=== PATIENT | female | born 1960 | race Caucasian/White ===

== ENCOUNTER → 2023-02-06 10:18 | Outpatient (REF) | payer BC, SELFPAY ==
[2023-02-06 12:39] LABS: ALT (SGPT) 137 U/L (0-35); AST (SGOT) 43 U/L (14-36); Albumin 3.3 g/dl (3.5-5.0); Alkaline Phosphatase 102 U/L (38-126); Direct Bilirubin 0.4 mg/dl (0.0-0.4); Total Bilirubin 0.6 mg/dl (0.2-1.3)
== END ==
LOC: REG 10:18
PROVIDERS: ATTENDING PHYSICIAN Hospitalist; FAMILY PHYSICIAN Family Medicine; REFERRING PHYSICIAN Internal Medicine Rheumatology
DX: R74.01 Elevation of levels of liver transaminase levels (principal)
CPT/HCPCS: 36415; 80076

== ENCOUNTER 2023-07-16 07:46 | Outpatient (RCR) | payer BC, SELFPAY ==
[2023-07-16 08:02] VITALS: BP 93/67
[2023-07-16] MEDS: SAPHNELO 100 MG IV (08:13)
== END 2023-07-30 23:59 | disposition home or self-care (01) ==
LOC: OID 07:46
PROVIDERS: ATTENDING PHYSICIAN Internal Medicine Rheumatology; FAMILY PHYSICIAN Family Medicine
DX: M32.9 Systemic lupus erythematosus, unspecified (principal)
CPT/HCPCS: 96365; J0491

== ENCOUNTER 2023-08-13 07:41 | Outpatient (RCR) | payer BC, SELFPAY ==
[2023-08-13 07:50] VITALS: BP 126/75
[2023-08-13] MEDS: SAPHNELO 100 MG IV (08:02)
== END 2023-08-13 15:46 | disposition home or self-care (01) ==
LOC: OID 07:41
PROVIDERS: ATTENDING PHYSICIAN Internal Medicine Rheumatology; FAMILY PHYSICIAN Family Medicine
DX: M32.9 Systemic lupus erythematosus, unspecified (principal)
CPT/HCPCS: 96365; J0491

== ENCOUNTER → 2023-08-26 09:01 | Outpatient (REF) | payer BC, SELFPAY ==
[2023-08-26 09:54] LABS: % Basophils 1.7 % (0-2); % Eosinophils 5.8 % (0-6); % Immature Granulocytes 0.2 % (0-0.5); % Lymphocytes 23.4 % (20.5-51.1); % Monocytes 12.4 % (1.7-9.3); % Neutrophils 56.5 % (42.2-75.2); Absolute Basophils 0.1 10^3/uL (0-0.2); Absolute Eosinophils 0.2 10^3/uL (0-0.7); Absolute Monocytes 0.5 10^3/uL (0.1-0.6); Absolute Neutrophils 2.3 10^3/uL (1.4-6.5); Hematocrit 44.9 % (37.0-47.0); Mean Corp Hgb Conc. 33.4 g/dL (33.0-37.0); Mean Corpuscular Volume 95.7 fL (81.0-99.0); Mean Platelet Volume 11.1 fL (7.4-10.4); Nucleated Red Blood Cells % 0 %; Platelet Count 218 10^3/uL (130-400); Red Blood Cell Count 4.69 10^6/uL (4.20-5.40); Red Cell Dist. Width 12.8 % (11.5-14.5); White Blood Cell Count 4.1 10^3/uL (4.8-10.8)
[2023-08-26 10:22] LABS: Urine Albumin Trace (Neg - Trace); Urine Bilirubin 1+ (Negative); Urine Character Clear (Clear); Urine Color Yellow; Urine Glucose Negative (Negative); Urine Ketone Trace (Negative); Urine Leukocyte Trace (Negative); Urine Nitrite Negative (Negative); Urine Occult Blood Negative (Negative); Urine Urobilinogen 1+ (Neg - 1+)
[2023-08-26 10:26] LABS: ALT (SGPT) 15 U/L (0-35); AST (SGOT) 26 U/L (14-36); Albumin 3.9 g/dl (3.5-5.0); Alkaline Phosphatase 83 U/L (38-126); Blood Urea Nitrogen 10 mg/dl (7-17); Calcium 9.3 mg/dl (8.4-10.2); Carbon Dioxide 31 mmol/L (22-30); Chloride 104 mmol/L (98-107); Glucose 89 mg/dl (70-99); HDL Cholesterol 55 mg/dl; LDL Cholesterol, Calculated 160 mg/dl; Potassium 4.2 mmol/L (3.5-5.1); Sodium 138 mmol/L (135-145); Total Bilirubin 0.6 mg/dl (0.2-1.3); Total Cholesterol 234 mg/dl (50-199); Triglyceride 97 mg/dl (10-149); Very Low Density Lipoprotein 19 mg/dl (0-30); eGFR > 60.00
[2023-08-26 10:34] LABS: Vitamin D, 25-OH*** 31.2 ng/mL (30-80)
[2023-08-26 10:48] LABS: TSH 1.06 uIU/ml (0.47-4.68)
[2023-08-26 10:55] LABS: Urine Mucus Moderate
[2023-08-26 10:56] LABS: Urine Red Blood Cell 0-2 /HPF (0-2)
[2023-08-26 12:13] LABS: Glycohemoglobin (HgbA1c) 5.7 % (4.0-5.6)
== END ==
LOC: REG 09:01
PROVIDERS: ATTENDING PHYSICIAN Family Medicine
DX: Z00.00 Encounter for general adult medical examination without abnormal findings (principal); R25.2 Cramp and spasm; J32.9 Chronic sinusitis, unspecified; R74.01 Elevation of levels of liver transaminase levels; M32.9 Systemic lupus erythematosus, unspecified; Z87.891 Personal history of nicotine dependence; R73.01 Impaired fasting glucose; E55.9 Vitamin D deficiency, unspecified; E78.5 Hyperlipidemia, unspecified; Z13.820 Encounter for screening for osteoporosis
CPT/HCPCS: 36415; 80053; 80061; 81003; 81015; 82306; 83036; 84443; 85025

== ENCOUNTER → 2023-08-27 14:20 | Outpatient (REF) | payer BC, SELFPAY | LOC: RAD 14:20 | PROVIDERS: ATTENDING PHYSICIAN Family Medicine | DX: J32.9 Chronic sinusitis, unspecified (principal) | CPT/HCPCS: 70486 ==

== ENCOUNTER 2023-09-10 07:39 | Outpatient (RCR) | payer BC, SELFPAY ==
[2023-09-10 07:55] VITALS: BP 110/61
[2023-09-10] MEDS: SAPHNELO 100 MG IV (08:01)
== END 2023-09-10 15:34 | disposition home or self-care (01) ==
LOC: OID 07:39
PROVIDERS: ATTENDING PHYSICIAN Internal Medicine Rheumatology; FAMILY PHYSICIAN Family Medicine
DX: M32.9 Systemic lupus erythematosus, unspecified (principal)
CPT/HCPCS: 96365; J0491

== ENCOUNTER → 2023-09-17 16:57 | Outpatient (REF) | payer BC, SELFPAY ==
[2023-09-17 18:04] LABS: % Eosinophils 1.2 % (0-6); % Immature Granulocytes 0.6 % (0-0.5); % Lymphocytes 21.5 % (20.5-51.1); % Monocytes 4.3 % (1.7-9.3); % Neutrophils 71.4 % (42.2-75.2); Absolute Basophils 0.1 10^3/uL (0-0.2); Absolute Eosinophils 0.1 10^3/uL (0-0.7); Absolute Immature Granulocytes 0.1 10^3/uL (0-0.05); Absolute Monocytes 0.4 10^3/uL (0.1-0.6); Absolute Neutrophils 6.7 10^3/uL (1.4-6.5); Hematocrit 46.4 % (37.0-47.0); Hemoglobin 15.4 g/dL (12.0-16.0); Mean Corp Hgb Conc. 33.2 g/dL (33.0-37.0); Mean Corpuscular Hgb 32.4 pg (27.0-31.0); Mean Corpuscular Volume 97.5 fL (81.0-99.0); Nucleated Red Blood Cells % 0 %; Platelet Count 224 10^3/uL (130-400); Red Blood Cell Count 4.76 10^6/uL (4.20-5.40); Red Cell Dist. Width 13.1 % (11.5-14.5); White Blood Cell Count 9.3 10^3/uL (4.8-10.8)
[2023-09-17 18:05] LABS: Urine Albumin Negative (Neg - Trace); Urine Bilirubin Negative (Negative); Urine Character Clear (Clear); Urine Color Yellow; Urine Glucose Negative (Negative); Urine Ketone Negative (Negative); Urine Leukocyte Negative (Negative); Urine Nitrite Negative (Negative); Urine Occult Blood Negative (Negative); Urine Specific Gravity 1.005 (<1.030); Urine Urobilinogen Negative (Neg - 1+)
[2023-09-17 18:09] LABS: Erythrocyte Sed Rate 17 mm/hour (0-20)
[2023-09-17 18:40] LABS: ALT (SGPT) 17 U/L (0-35); AST (SGOT) 21 U/L (14-36); Albumin 4.2 g/dl (3.5-5.0); Alkaline Phosphatase 71 U/L (38-126); Blood Urea Nitrogen 13 mg/dl (7-17); Calcium 9.6 mg/dl (8.4-10.2); Carbon Dioxide 31 mmol/L (22-30); Chloride 96 mmol/L (98-107); Glucose 115 mg/dl (70-99); Potassium 4.3 mmol/L (3.5-5.1); Sodium 137 mmol/L (135-145); Total Bilirubin 0.4 mg/dl (0.2-1.3); Total Protein 7.3 g/dl (6.3-8.2); eGFR > 60.00
[2023-09-17 18:42] LABS: C-Reactive Protein < 5.00 mg/L (0.0-10.00)
[2023-09-17 18:58] LABS: Vitamin D, 25-OH*** 24.9 ng/mL (30-80)
[2023-09-19 20:15] LABS: ANA, IgG Reflex to HEp-2 Detected (None Detected)
[2023-09-22 07:22] LABS: ANA, HEp-2, IgG Detected (<1:80)
[2023-09-22 07:37] LABS: ANA Pattern Homogeneous; Cytoplasmic Pattern Speckled
== END ==
LOC: REG 16:57
PROVIDERS: ATTENDING PHYSICIAN Internal Medicine Rheumatology; FAMILY PHYSICIAN Family Medicine
DX: G43.109 Migraine with aura, not intractable, without status migrainosus (principal); I73.00 Raynaud's syndrome without gangrene; M32.9 Systemic lupus erythematosus, unspecified; N39.0 Urinary tract infection, site not specified; Z68.26 Body mass index [BMI] 26.0-26.9, adult
CPT/HCPCS: 36415; 80053; 81003; 82306; 85025; 85652; 86038; 86039; 86140; 87086

== ENCOUNTER 2023-10-08 07:42 | Outpatient (RCR) | payer BC, SELFPAY ==
[2023-10-08 07:50] VITALS: BP 99/64
[2023-10-08] MEDS: SAPHNELO 100 MG IV (08:02)
== END 2023-10-08 10:29 | disposition home or self-care (01) ==
LOC: OID 07:42
PROVIDERS: ATTENDING PHYSICIAN Internal Medicine Rheumatology; FAMILY PHYSICIAN Family Medicine
DX: M32.9 Systemic lupus erythematosus, unspecified (principal)
CPT/HCPCS: 96365; J0491

== ENCOUNTER 2023-11-05 07:42 | Outpatient (RCR) | payer BC, SELFPAY ==
[2023-11-05] MEDS: SAPHNELO 100 MG IV (08:13)
[2023-11-05 08:18] VITALS: BP 110/61
== END 2023-11-05 13:13 | disposition home or self-care (01) ==
LOC: OID 07:42
PROVIDERS: ATTENDING PHYSICIAN Internal Medicine Rheumatology; FAMILY PHYSICIAN Family Medicine
DX: M32.9 Systemic lupus erythematosus, unspecified (principal)
CPT/HCPCS: 96365; J0491

== ENCOUNTER 2023-12-03 07:45 | Outpatient (RCR) | payer BC, SELFPAY ==
[2023-12-03 08:00] VITALS: BP 101/59
[2023-12-03] MEDS: SAPHNELO 100 MG IV (08:06)
[2023-12-03 08:34] LABS: ALT (SGPT) 12 U/L (0-35); AST (SGOT) 23 U/L (14-36); Albumin 3.6 g/dl (3.5-5.0); Alkaline Phosphatase 62 U/L (38-126); Blood Urea Nitrogen 11 mg/dl (7-17); Calcium 9.6 mg/dl (8.4-10.2); Carbon Dioxide 28 mmol/L (22-30); Chloride 106 mmol/L (98-107); Glucose 89 mg/dl (70-99); HDL Cholesterol 58 mg/dl; LDL Cholesterol, Calculated 91 mg/dl; Potassium 4.2 mmol/L (3.5-5.1); Sodium 140 mmol/L (135-145); Total Bilirubin 0.5 mg/dl (0.2-1.3); Total Cholesterol 175 mg/dl (50-199); Total Protein 6.6 g/dl (6.3-8.2); Triglyceride 134 mg/dl (10-149); Very Low Density Lipoprotein 26 mg/dl (0-30); eGFR > 60.00
== END 2023-12-03 11:26 | disposition home or self-care (01) ==
LOC: OID 07:45
PROVIDERS: ATTENDING PHYSICIAN Internal Medicine Rheumatology; FAMILY PHYSICIAN Family Medicine
DX: M32.9 Systemic lupus erythematosus, unspecified (principal)
CPT/HCPCS: 36415; 80053; 80061; 96365; J0491

== ENCOUNTER 2024-01-28 07:46 | Outpatient (RCR) | payer BC, SELFPAY ==
[2023-12-31] MEDS: SAPHNELO 100 MG IV (08:11)
[2023-12-31 08:23] VITALS: BP 102/63
[2024-01-28] MEDS: SAPHNELO 100 MG IV (08:10)
[2024-01-28 08:15] VITALS: BP 96/60
== END 2024-01-28 14:43 | disposition home or self-care (01) ==
LOC: OID 07:46
PROVIDERS: ATTENDING PHYSICIAN Internal Medicine Rheumatology; FAMILY PHYSICIAN Family Medicine
DX: M32.9 Systemic lupus erythematosus, unspecified (principal)
CPT/HCPCS: 96365; J0491

== ENCOUNTER 2024-02-25 07:37 | Outpatient (RCR) | payer BC, SELFPAY ==
[2024-02-25 07:50] VITALS: BP 111/67
[2024-02-25] MEDS: SAPHNELO 100 MG IV (07:57)
== END 2024-02-25 15:27 | disposition home or self-care (01) ==
LOC: OID 07:37
PROVIDERS: ATTENDING PHYSICIAN Internal Medicine Rheumatology; FAMILY PHYSICIAN Family Medicine
DX: M32.9 Systemic lupus erythematosus, unspecified (principal)
CPT/HCPCS: 96365; J0491

== ENCOUNTER → 2024-03-03 17:09 | Outpatient (REF) | payer BC, SELFPAY | LOC: WDC 17:09 | PROVIDERS: ATTENDING PHYSICIAN Obstetrics & Gynecology; FAMILY PHYSICIAN Family Medicine | DX: Z12.31 Encounter for screening mammogram for malignant neoplasm of breast (principal) | CPT/HCPCS: 77063; 77067 ==

== ENCOUNTER → 2024-03-18 07:42 | Outpatient (REF) | payer BC, SELFPAY ==
[2024-03-18 10:18] LABS: % Basophils 1.4 % (0-2); % Eosinophils 3.7 % (0-6); % Immature Granulocytes 0.2 % (0-0.5); % Lymphocytes 24.7 % (20.5-51.1); % Monocytes 9.2 % (1.7-9.3); % Neutrophils 60.8 % (42.2-75.2); Absolute Basophils 0.1 10^3/uL (0-0.2); Absolute Eosinophils 0.2 10^3/uL (0-0.7); Absolute Lymphocytes 1.1 10^3/uL (1.2-3.4); Absolute Monocytes 0.4 10^3/uL (0.1-0.6); Absolute Neutrophils 2.6 10^3/uL (1.4-6.5); Hematocrit 43.4 % (37.0-47.0); Hemoglobin 14.8 g/dL (12.0-16.0); Mean Corp Hgb Conc. 34.1 g/dL (33.0-37.0); Mean Corpuscular Hgb 32.1 pg (27.0-31.0); Mean Corpuscular Volume 94.1 fL (81.0-99.0); Mean Platelet Volume 11.9 fL (7.4-10.4); Nucleated Red Blood Cells % 0 %; Platelet Count 173 10^3/uL (130-400); Red Blood Cell Count 4.61 10^6/uL (4.20-5.40); Red Cell Dist. Width 13.2 % (11.5-14.5); White Blood Cell Count 4.3 10^3/uL (4.8-10.8)
[2024-03-18 10:58] LABS: ALT (SGPT) 15 U/L (0-35); AST (SGOT) 26 U/L (14-36); Albumin 3.8 g/dl (3.5-5.0); Alkaline Phosphatase 69 U/L (38-126); Blood Urea Nitrogen 11 mg/dl (7-17); Calcium 9.2 mg/dl (8.4-10.2); Carbon Dioxide 27 mmol/L (22-30); Chloride 104 mmol/L (98-107); Glucose 90 mg/dl (70-99); Potassium 4.3 mmol/L (3.5-5.1); Sodium 143 mmol/L (135-145); Total Bilirubin 0.6 mg/dl (0.2-1.3); Total Protein 6.6 g/dl (6.3-8.2); eGFR > 60.00
[2024-03-18 11:04] LABS: C-Reactive Protein < 5.00 mg/L (0.0-10.00)
[2024-03-18 11:20] LABS: Vitamin D, 25-OH*** 59.4 ng/mL (30-80)
[2024-03-18 11:46] LABS: Erythrocyte Sed Rate 28 mm/hour (0-20)
[2024-03-20 02:51] LABS: ANA, IgG Reflex to HEp-2 Detected (None Detected)
== END ==
LOC: REG 07:42
PROVIDERS: ATTENDING PHYSICIAN Internal Medicine Rheumatology; FAMILY PHYSICIAN Family Medicine
DX: E55.9 Vitamin D deficiency, unspecified (principal); G43.109 Migraine with aura, not intractable, without status migrainosus; I73.00 Raynaud's syndrome without gangrene; M32.9 Systemic lupus erythematosus, unspecified; N39.0 Urinary tract infection, site not specified; Z68.26 Body mass index [BMI] 26.0-26.9, adult
CPT/HCPCS: 36415; 80053; 82306; 85025; 85652; 86038; 86140; 87086

== ENCOUNTER → 2024-03-19 14:18 | Outpatient (REF) | payer BC, SELFPAY | LOC: HWRAD 14:18 | PROVIDERS: ATTENDING PHYSICIAN Family Medicine | DX: Z87.891 Personal history of nicotine dependence (principal) | CPT/HCPCS: 71271 ==

== ENCOUNTER 2024-03-24 07:43 | Outpatient (RCR) | payer BC, SELFPAY ==
[2024-03-24] MEDS: SAPHNELO 100 MG IV (08:11)
[2024-03-24 08:15] VITALS: BP 115/66
== END 2024-03-24 13:48 | disposition home or self-care (01) ==
LOC: OID 07:43
PROVIDERS: ATTENDING PHYSICIAN Internal Medicine Rheumatology; FAMILY PHYSICIAN Family Medicine
DX: M32.9 Systemic lupus erythematosus, unspecified (principal)
CPT/HCPCS: 96365; J0491

== ENCOUNTER → 2024-03-31 11:00 | Outpatient (REF) | payer BC, SELFPAY | LOC: CLAB 11:00 | PROVIDERS: ATTENDING PHYSICIAN Otolaryngology | DX: J32.4 Chronic pansinusitis (principal) | CPT/HCPCS: 88304; 88311; 87070; 87077; 87205 ==

== ENCOUNTER 2024-04-06 11:08 | Emergency (ER) | payer BC, SELFPAY ==
[2024-04-06 11:13] VITALS: BP 97/59
--- NOTE | 2024-04-06 11:21 | ED.GENMED ---
ED Provider Triage
-
Patient seen by provider in Triage?: Seen in Triage
Attestation: A medical screening examination has been initiated by a qualified medical provider. Based on the assessment performed at this time, it has been determined that an emergent medical condition may exist and the patient has been informed
that further medical evaluation and possible additional diagnostic testing may be needed.
HPI: 63-year-old female presents to the emergency department for evaluation of intractable nausea vomiting and diarrhea beginning last night. Began about 30 minutes after taking a dose of Bactrim, had a recent rhinoplasty with operative washout,
operative cultures growing Serratia marcescens susceptible to Bactrim, first dose began last night, ENT is Dr. Cornell
GENERAL: Alert , in no apparent distress
EYE: No visual abnormalities.
NECK: Trachea midline
ENT: No visible abnormalities.
LUNGS: No acute respiratory distress
NEUROLOGICAL: Alert and oriented
SKIN: Skin intact. No visible changes.
MUSCULOSKELETAL: Moving extremities normally
PSYCH: Normal and appropriate interaction.
A/P: N/V/D, check labs and give IV antiemetics/fluids, no strong indication for CT at this time
This is a medical evaluation conducted in person to initiate diagnostic evaluation and provide initial therapeutics. Please see further documentation by the treating clinician.
History of Present Illness
General
Chief Complaint: Abdominal Symptoms
Past History
Past History
ED Past Medical History: Other (diverticulitis and SLE)
ED Past Surgical History: and Other
Social History
Tobacco: Smoker
Alcohol: None
Drug: None
Personal:
Living: with family
Employment: Employed
Family History
Family History: Hypertension
Course
Orders/Labs/Results
Orders:
Orders
04/06/24 11:19
Complete Blood Count/With Diff Urgent
Comprehensive Metabolic Panel Urgent
Lipase Urgent
0.9% Sodium Chloride 1000 ml [Nss] 1,000 ml IV BOLUS
Ondansetron Injectable [Zofran] 4 mg IV NOW STA
Vital Signs
Initial and Last Documented VS:
Initial Vital Signs
Temp Pulse Resp BP Pulse Ox
97.7 F 75 20 97/59 97
04/06/24 11:13 04/06/24 11:13 04/06/24 11:13 04/06/24 11:13 04/06/24 11:13
Last Documented Vital Signs
Temp Pulse Resp BP Pulse Ox
97.7 F 75 20 97/59 97
04/06/24 11:13 04/06/24 11:13 04/06/24 11:13 04/06/24 11:13 04/06/24 11:13
ED Attending Note
-
Portions of this chart may have been created with voice recognition software.� Occasional wrong word or��sound alike� substitutions may have occurred due to the inherent limitations of voice recognition software.
Discharge Plan
Departure
Prescriptions:
No Action
sumatriptan succinate [Imitrex] 50 mg Tablet
100 mg PO DAILYPRN PRN (Reason: migraine)
Rx Instructions:
2 tabs on onset of migraine, may repeat in 2hrs if needed
gabapentin 300 mg Capsule
600 mg PO HS PRN (Reason: Neurological Condition)
varenicline 1 mg Tablet
1 mg PO HS
Saphnelo 300 mg/2 mL (150 mg/mL) Solution
300 mg IV Q4W
Rx Instructions:
Given in OID
rosuvastatin 5 mg Tablet
5 mg PO HS
ergocalciferol (vitamin D2) [Vitamin D2] 1,250 mcg (50,000 unit) Capsule
1,250 mcg PO QWEEK
Interventions
Interventions:
*Risk Screen - Suicide Last Done: 04/06/24 11:13
Discharge Date and Time
Print Language: [place]
[2024-04-06 11:39] LABS: % Basophils 0.5 % (0-2); % Eosinophils 0.8 % (0-6); % Immature Granulocytes 0.4 % (0-0.5); % Monocytes 3.2 % (1.7-9.3); % Neutrophils 91.1 % (42.2-75.2); Absolute Basophils 0.1 10^3/uL (0-0.2); Absolute Eosinophils 0.1 10^3/uL (0-0.7); Absolute Lymphocytes 0.4 10^3/uL (1.2-3.4); Absolute Monocytes 0.4 10^3/uL (0.1-0.6); Absolute Neutrophils 9.9 10^3/uL (1.4-6.5); Hematocrit 43.6 % (37.0-47.0); Hemoglobin 15.3 g/dL (12.0-16.0); Mean Corp Hgb Conc. 35.1 g/dL (33.0-37.0); Mean Corpuscular Hgb 32.6 pg (27.0-31.0); Mean Platelet Volume 11.1 fL (7.4-10.4); Nucleated Red Blood Cells % 0 %; Platelet Count 206 10^3/uL (130-400); Red Blood Cell Count 4.69 10^6/uL (4.20-5.40); Red Cell Dist. Width 13.2 % (11.5-14.5); White Blood Cell Count 10.9 10^3/uL (4.8-10.8)
[2024-04-06] MEDS: ZOFRAN 4 MG IV ×2 (11:41→13:49)
[2024-04-06] MEDS: NSS 1000 IV ×2 (11:41→14:49)
--- NOTE | 2024-04-06 11:57 | ED.GENMED ---
Addendum entered and electronically signed by Sandip Skaggs PA-C 04/07/24 10:03:
Attestation: A medical screening examination has been initiated by a qualified medical provider. Based on the assessment performed at this time, it has been determined that an emergent medical condition may exist and the patient has been informed
that further medical evaluation and possible additional diagnostic testing may be needed.
HPI: 63-year-old female presents to the emergency department for evaluation of intractable nausea vomiting and diarrhea beginning last night. Began about 30 minutes after taking a dose of Bactrim, had a recent rhinoplasty with operative washout,
operative cultures growing Serratia marcescens susceptible to Bactrim, first dose began last night, ENT is Dr. Cornell
GENERAL: Alert , in no apparent distress
EYE: No visual abnormalities.
NECK: Trachea midline
ENT: No visible abnormalities.
LUNGS: No acute respiratory distress
NEUROLOGICAL: Alert and oriented
SKIN: Skin intact. No visible changes.
MUSCULOSKELETAL: Moving extremities normally
PSYCH: Normal and appropriate interaction.
A/P: N/V/D, check labs and give IV antiemetics/fluids, no strong indication for CT at this time
This is a medical evaluation conducted in person to initiate diagnostic evaluation and provide initial therapeutics. Please see further documentation by the treating clinician.
Original Note:
History of Present Illness
<Chayo Ash PA-C - Last Filed: 04/06/24 18:10>
General
Chief Complaint: Abdominal Symptoms
Source: patient
Exam Limitations: none
Time Seen by Provider: 04/06/24 11:32
Nursing documentation reviewed up to this point in time: agreed with
History of Present Illness
History of Present Illness:
Patient is a 63-year-old female with history hyperlipidemia currently 6 days postop from rhinoplasty presenting to the emergency department with intractable nausea, vomiting, diarrhea since last night. Patient states around 5:30 PM she started with
significant nausea and frequent vomiting. Vomiting has persisted throughout the morning. She has also had a few episodes of diarrhea. Patient has been unable to tolerate any p.o. intake. Patient reports mild intermittent abdominal cramping. She
does feel as if she had a fever at home last night.
Of note�patient did take her first dose of Bactrim approximately 30 minutes prior to onset of symptoms last night. Bactrim was prescribed by her ENT doctor, Dr. Cornell yesterday due to sinus culture results. She initially was on a course of
doxycycline but results showed that bacteria was resistant to this. Patient states she has had Bactrim in the past without any difficulty reaction.
Patient denies any rash occultly breathing, throat itching. Patient denies any urinary symptoms, hemoptysis.
No sick contacts.
Past History
<Chayo Ash PA-C - Last Filed: 04/06/24 18:10>
Past History
ED Past Medical History: Other (diverticulitis and SLE)
ED Past Surgical History: and Other
Social History
Tobacco: Smoker
Alcohol: None
Drug: None
Personal:
Living: with family
Employment: Employed
Family History
Family History: Hypertension
Review of Systems
<Chayo Ash PA-C - Last Filed: 04/06/24 18:10>
Review of Systems
Allergies reviewed?: Yes
All Other Systems: ROS reviewed and negative except as documented in HPI and ROS
Phy Exam
<Chayo Ash PA-C - Last Filed: 04/06/24 18:10>
Physical Exam
Physical Exam:
Vitals: Patient's vital signs are stable. Afebrile
General: Patient is appearing, no acute distress
Skin: Warm and dry, no rashes or lesions
Head: Normocephalic, atraumatic
Eyes: Sclera nonicteric. EOMs intact. No nystagmus.
Throat: No edema or erythema of posterior pharynx. Airway patent. No swelling of tongue or elevation of tongue. Protecting airway
Neck: Normal ROM, no cervical spine tenderness, no meningismus
Cardiac: Regular rate and rhythm, no murmurs.
Pulm: Normal respiratory effort, no wheezes, rales, rhonchi heard on exam.
Abdomen: Abdomen soft and nontender. No rebound tenderness.
Extremities: No evidence of cyanosis or edema
Neuro: Grossly intact.
Psychiatric: Normal affect.
Course
<Chayo Ash PA-C - Last Filed: 04/06/24 18:10>
Orders/Labs/Results
Orders:
Orders
04/06/24 11:19
0.9% Sodium Chloride 1000 ml [Nss] 1,000 ml IV BOLUS
Ondansetron Injectable [Zofran] 4 mg IV NOW STA
04/06/24 11:31
Complete Blood Count/With Diff Urgent
Comprehensive Metabolic Panel Urgent
Lipase Urgent
04/06/24 12:48
Acetaminophen [Tylenol] 650 mg PO NOW STA
04/06/24 13:35
Ondansetron Injectable [Zofran] 4 mg IV NOW STA
04/06/24 13:43
0.9% Sodium Chloride 1000 ml [Nss] 1,000 ml IV BOLUS
04/06/24 13:49
Doxycycline [Vibramycin] 100 mg PO NOW STA
Abnormal Lab Results
04/06/24
11:31
WBC 10.9 H 10^3/uL
(4.8-10.8)
MCH 32.6 H pg
(27.0-31.0)
MPV 11.1 H fL
(7.4-10.4)
Absolute Neuts (auto) 9.9 H 10^3/uL
(1.4-6.5)
Absolute Lymphs (auto) 0.4 L 10^3/uL
(1.2-3.4)
Neutrophils % 91.1 H %
(42.2-75.2)
Lymphocytes % 4.0 L %
(20.5-51.1)
Carbon Dioxide 31 H mmol/L
(22-30)
BUN 23 H mg/dl
(7-17)
Glucose 107 H mg/dl
(70-99)
Total Bilirubin 1.4 H mg/dl
(0.2-1.3)
AST 60 H U/L
(14-36)
ALT 41 H U/L
(0-35)
04/06/24 11:31
04/06/24 11:31
Vital Signs
Initial and Last Documented VS:
Initial Vital Signs
Temp Pulse Resp BP Pulse Ox
97.7 F 75 20 97/59 97
04/06/24 11:13 04/06/24 11:13 04/06/24 11:13 04/06/24 11:13 04/06/24 11:13
Last Documented Vital Signs
Temp Pulse Resp BP Pulse Ox
97.7 F 66 18 94/49 98
04/06/24 11:13 04/06/24 16:04 04/06/24 16:04 04/06/24 16:04 04/06/24 16:04
Nileshlt;Jerrod Ceballos DO - Last Filed: 04/06/24 13:27>
Orders/Labs/Results
Orders:
Orders
04/06/24 11:19
0.9% Sodium Chloride 1000 ml [Nss] 1,000 ml IV BOLUS
Ondansetron Injectable [Zofran] 4 mg IV NOW STA
04/06/24 11:31
Complete Blood Count/With Diff Urgent
Comprehensive Metabolic Panel Urgent
Lipase Urgent
04/06/24 12:48
Acetaminophen [Tylenol] 650 mg PO NOW STA
04/06/24 13:35
Ondansetron Injectable [Zofran] 4 mg IV NOW STA
04/06/24 13:43
0.9% Sodium Chloride 1000 ml [Nss] 1,000 ml IV BOLUS
04/06/24 13:49
Doxycycline [Vibramycin] 100 mg PO NOW STA
Abnormal Lab Results
04/06/24
11:31
WBC 10.9 H 10^3/uL
(4.8-10.8)
MCH 32.6 H pg
(27.0-31.0)
MPV 11.1 H fL
(7.4-10.4)
Absolute Neuts (auto) 9.9 H 10^3/uL
(1.4-6.5)
Absolute Lymphs (auto) 0.4 L 10^3/uL
(1.2-3.4)
Neutrophils % 91.1 H %
(42.2-75.2)
Lymphocytes % 4.0 L %
(20.5-51.1)
Carbon Dioxide 31 H mmol/L
(22-30)
BUN 23 H mg/dl
(7-17)
Glucose 107 H mg/dl
(70-99)
Total Bilirubin 1.4 H mg/dl
(0.2-1.3)
AST 60 H U/L
(14-36)
ALT 41 H U/L
(0-35)
04/06/24 11:31
04/06/24 11:31
Vital Signs
Initial and Last Documented VS:
Initial Vital Signs
Temp Pulse Resp BP Pulse Ox
97.7 F 75 20 97/59 97
04/06/24 11:13 04/06/24 11:13 04/06/24 11:13 04/06/24 11:13 04/06/24 11:13
Last Documented Vital Signs
Temp Pulse Resp BP Pulse Ox
97.7 F 66 18 94/49 98
04/06/24 11:13 04/06/24 16:04 04/06/24 16:04 04/06/24 16:04 04/06/24 16:04
<Chayo Ash PA-C - Last Filed: 04/06/24 18:10>
MDM/Problems Addressed
Differential Diagnosis Includes:
Not limited to: Medication side effect, viral gastroenteritis, food poisoning, gastritis, etc.
MDM/Problems Addressed:
63-year-old female 6 days postop from rhinoplasty presents with persistent nausea, vomiting, diarrhea after first dose of Bactrim yesterday. Patient afebrile with stable vital signs. Exam as above. No evidence of rash. Patient without any
evidence of respiratory distress, no oral swelling. Patient protecting airway. Abdomen is soft and nontender. Labs were initiated in triage which show very mild leukocytosis of 10.9�likely reactive from vomiting. Mild transaminitis. Lipase
normal. Patient was given a liter of fluids and Zofran prior to my assessment. Suspect likely medication side effect from Bactrim although viral gastroenteritis could also be a possibility. Given patient is afebrile with benign abdominal exam and
no significant leukocytosis�no indication for abdominal CT at this time. Will review culture data and plans to switch antibiotic given presumed medication side effect from Bactrim. Will let fluids run and reassess.
Update: Did review culture results as performed by ENT. Did discuss with Dr. Wiseman who recommends switching patient back to doxycycline and he will follow-up with her closely in office next week and to consider possible addition of nasal
antibiotic rinses. On reassessment�patient is feeling better has tolerated p.o. liquid intake. She has had no episodes of vomiting since arrival to emergency department. She is borderline hypotensive and although she does have a history of
hypertension�will replete with 1 more liter normal saline. Anticipate discharge.
Update: After second liter of fluids�BP of 94/49 which appears to be patient's baseline. She is feeling much better and walking without any lightheadedness/dizziness. Patient is tolerating p.o. intake. Patient did receive first dose of
doxycycline today in emergency department. Patient stable for discharge with ENT follow-up. Return precautions discussed at length. Recommended adequate hydration. She will discontinue Bactrim and resume doxycycline. Patient seen with attending
physician.
Chronic conditions affecting care:
N/A
Acute Exacerbation and/or Progression of Chronic Illness:
N/A
<Chayo Ash PA-C - Last Filed: 04/06/24 18:10>
*Pulse Oximetry
Patient hypoxic: no
*EKG
Interpreted by ED Provider?: NA
*Welder Oxyhydrogen Interpretation
Rate: Welder Oxyhydrogen- N/A
*Critical Care Note
Total Time (30-74mins, 75-104mins- exclusive of procedures): Not Applicable
Data Reviewed
Review of Other/Old Records Reveals: Labs (Culture results from right sinus)
<Chayo Ash PA-C - Last Filed: 04/06/24 18:10>
Patient Management
Discussion with other providers: [employer] Subject Matter Expert (ENT-Dr. Wiseman)
ED Attending Note
<Chayo Ash PA-C - Last Filed: 04/06/24 18:10>
-
Portions of this chart may have been created with voice recognition software.� Occasional wrong word or��sound alike� substitutions may have occurred due to the inherent limitations of voice recognition software.
<Jerrod Ceballos DO - Last Filed: 04/06/24 13:27>
ED Attending Note
Patient seen and examined by attending physician: Yes
I performed a history and physical exam of patient and discussed management with resident, I reviewed resident's note and agree with documented findings and plan of care.: Yes
ED Attending Note:
I agree with Kelly's note.
Pt developed nausea, vomiting about 30 minutes after taking Bactrim. No rash. No mucosal irritation.
General: Awake, Alert, Oriented X3. Appears bit uncomfortable which she states is from her lupus
Vitals: unremarkable
Head: Atraumatic
Eyes: Pupils equal, EOMI
Throat: Airway intact, no exudates, dry mucosa
Abd: Soft, Nontender, No pulsatile mass
Neuro: Nonfocal
Skin: Warm, dry, no rash
I discussed the patient's presentation with Dr. Wiseman prescribed Bactrim. Will switch her back to doxycycline and he will follow-up with her in the office.
Discharge Plan
Departure
Patient Disposition: Home (Routine Discharge)
Date of Disposition: 04/06/24
Time of Disposition: 15:01
Patient with high blood pressure during this ER visit?: No
Condition: Good
Covid-19: Not Applicable
Discharge Problem:
Nausea vomiting and diarrhea
Instructions: Adverse Drug Reactions, Adult (DC), Nausea and Vomiting, Adult ED
Prescriptions:
New
doxycycline hyclate 100 mg capsule
100 mg PO BID 14 Days Qty: 28 0RF
ondansetron 4 mg tablet,disintegrating
4 mg PO Q8H PRN (Reason: nausea and vomiting) Qty: 10 0RF
No Action
sumatriptan succinate [Imitrex] 50 mg Tablet
100 mg PO DAILYPRN PRN (Reason: migraine)
Rx Instructions:
2 tabs on onset of migraine, may repeat in 2hrs if needed
gabapentin 300 mg Capsule
600 mg PO HS PRN (Reason: Neurological Condition)
varenicline 1 mg Tablet
1 mg PO HS
Saphnelo 300 mg/2 mL (150 mg/mL) Solution
300 mg IV Q4W
Rx Instructions:
Given in OID
rosuvastatin 5 mg Tablet
5 mg PO HS
ergocalciferol (vitamin D2) [Vitamin D2] 1,250 mcg (50,000 unit) Capsule
1,250 mcg PO QWEEK
Referrals:
Davon Diamond, DO [Family Provider] -
Ayaan Wiseman MD [Active] - Keep scheduled appt
Activity Restrictions/Additional Instructions:
RETURN TO THE EMERGENCY DEPARTMENT WITH FEVERS, CHILLS, SEVERE ABDOMINAL PAIN, INTRACTABLE NAUSEA/VOMITING, ORAL SWELLING/DIFFICULTY BREATHING, NEW RASH, SIGNS OF SEVERE DEHYDRATION, WORSENING IN CURRENT SYMPTOMS, OR ANY OTHER CONCERNS
-As discussed�you should discontinue the Bactrim. I have sent a new prescription for doxycycline you can take twice a day for the next 2 weeks. A prescription has been sent for Zofran, as well. You can take this up to every 8 hours as needed for
persistent nausea.
-It is important to stay well-hydrated. I would recommend a bland diet over the next few days
-It is very importantly follow-up with ENT for further evaluation/management as scheduled next Friday. They may make further adjustments to antibiotic regimen.
Monitor your symptoms closely return to the emergency department with any acute worsening/new symptoms
Interventions
Interventions:
*Risk Screen - Suicide Last Done: 04/06/24 11:13
*General Assessment Last Done: 04/06/24 12:24
*Neglect/Abuse Screening Last Done: 04/06/24 13:58
ED- Fall Risk Assessment Last Done: 04/06/24 12:36
*ED COVID-19 Vaccine History Last Done: 04/06/24 12:24
*Nursing Disposition Last Done: 04/06/24 16:04
DN-Eofebe-Jvarpypglq Assessment Last Done: 04/06/24 12:36
ED- Cardiac Assessment Last Done: 04/06/24 12:36
ED- Pulmonary Assessment Last Done: 04/06/24 12:36
ED-Skin Assessment Last Done: 04/06/24 12:36
Discharge Date and Time
Discharge Date/Time: 04/06/24 16:07
Print Language: TURKISH
[2024-04-06 11:58] LABS: ALT (SGPT) 41 U/L (0-35); AST (SGOT) 60 U/L (14-36); Albumin 3.7 g/dl (3.5-5.0); Alkaline Phosphatase 54 U/L (38-126); Blood Urea Nitrogen 23 mg/dl (7-17); Calcium 9.2 mg/dl (8.4-10.2); Carbon Dioxide 31 mmol/L (22-30); Chloride 98 mmol/L (98-107); Glucose 107 mg/dl (70-99); Lipase 76 U/L (23-300); Potassium 4.3 mmol/L (3.5-5.1); Sodium 137 mmol/L (135-145); Total Bilirubin 1.4 mg/dl (0.2-1.3); Total Protein 6.5 g/dl (6.3-8.2); eGFR > 60.00
[2024-04-06 12:25] VITALS: BMI 27.0
[2024-04-06] MEDS: TYLENOL 650 MG PO (13:09)
[2024-04-06] MEDS: VIBRAMYCIN 100 MG PO (13:54)
[2024-04-06 14:00] VITALS: BP 87/49
[2024-04-06 16:04] VITALS: BP 94/49
== END 2024-04-06 16:07 | disposition home or self-care (01) ==
LOC: EMR 11:08
PROVIDERS: Physician Assistant; EMERGENCY PHYSICIAN Emergency Medicine; FAMILY PHYSICIAN Family Medicine
DX: R11.2 Nausea with vomiting, unspecified (principal); R19.7 Diarrhea, unspecified; E78.00 Pure hypercholesterolemia, unspecified; F17.200 Nicotine dependence, unspecified, uncomplicated; I10 Essential (primary) hypertension; M32.9 Systemic lupus erythematosus, unspecified; Z48.810 Encounter for surgical aftercare following surgery on the sense organs; Z82.49 Family history of ischemic heart disease and other diseases of the circulatory system
CPT/HCPCS: 99283; 80053; 83690; 85025

== ENCOUNTER 2024-04-21 07:35 | Outpatient (RCR) | payer BC, SELFPAY ==
[2024-04-21] MEDS: SAPHNELO 100 MG IV (08:10)
[2024-04-21 08:20] VITALS: BP 94/62
== END 2024-04-22 08:31 | disposition home or self-care (01) ==
LOC: OID 07:35
PROVIDERS: ATTENDING PHYSICIAN Internal Medicine Rheumatology; FAMILY PHYSICIAN Family Medicine
DX: M32.9 Systemic lupus erythematosus, unspecified (principal)
CPT/HCPCS: 96365; J0491

== ENCOUNTER 2024-05-19 07:37 | Outpatient (RCR) | payer BC, SELFPAY ==
[2024-05-19] MEDS: SAPHNELO 100 MG IV (08:15)
[2024-05-19 08:25] VITALS: BP 111/74
== END 2024-05-20 08:35 | disposition home or self-care (01) ==
LOC: OID 07:37
PROVIDERS: ATTENDING PHYSICIAN Internal Medicine Rheumatology; FAMILY PHYSICIAN Family Medicine
DX: M32.9 Systemic lupus erythematosus, unspecified (principal)
CPT/HCPCS: 96365; J0491

== ENCOUNTER 2024-06-16 07:39 | Outpatient (RCR) | payer BC, SELFPAY ==
[2024-06-16 07:50] VITALS: BP 93/63
[2024-06-16] MEDS: SAPHNELO 100 MG IV (08:01)
== END 2024-06-17 11:27 | disposition home or self-care (01) ==
LOC: OID 07:39
PROVIDERS: ATTENDING PHYSICIAN Internal Medicine Rheumatology; FAMILY PHYSICIAN Family Medicine
DX: M32.9 Systemic lupus erythematosus, unspecified (principal)
CPT/HCPCS: 96365; J0491

== ENCOUNTER 2024-07-14 07:51 | Outpatient (RCR) | payer BC, SELFPAY ==
[2024-07-14] MEDS: SAPHNELO 100 MG IV (08:24)
[2024-07-14 08:35] VITALS: BP 99/63
== END 2024-07-15 09:27 | disposition home or self-care (01) ==
LOC: OID 07:51
PROVIDERS: ATTENDING PHYSICIAN Internal Medicine Rheumatology; FAMILY PHYSICIAN Family Medicine
DX: M32.9 Systemic lupus erythematosus, unspecified (principal)
CPT/HCPCS: 96365; J0491

== ENCOUNTER 2024-08-11 07:41 | Outpatient (RCR) | payer BC, SELFPAY ==
[2024-08-11] MEDS: SAPHNELO 100 MG IV (08:19)
[2024-08-11 08:26] VITALS: BP 111/70
== END 2024-08-12 09:19 | disposition home or self-care (01) ==
LOC: OID 07:41
PROVIDERS: ATTENDING PHYSICIAN Internal Medicine Rheumatology; FAMILY PHYSICIAN Family Medicine
DX: M32.9 Systemic lupus erythematosus, unspecified (principal); Z87.891 Personal history of nicotine dependence
CPT/HCPCS: 96365; J0491

== ENCOUNTER 2024-09-08 07:42 | Outpatient (RCR) | payer BC, SELFPAY ==
[2024-09-08] MEDS: SAPHNELO 100 MG IV (08:16)
[2024-09-08 08:21] VITALS: BP 91/64
== END 2024-09-09 10:04 | disposition home or self-care (01) ==
LOC: OID 07:42
PROVIDERS: ATTENDING PHYSICIAN Internal Medicine Rheumatology; FAMILY PHYSICIAN Family Medicine
DX: M32.9 Systemic lupus erythematosus, unspecified (principal)
CPT/HCPCS: 96365; J0491

== ENCOUNTER → 2024-09-16 15:51 | Outpatient (REF) | payer BC, SELFPAY ==
[2024-09-16 17:18] LABS: % Basophils 1.2 % (0-2); % Eosinophils 2.5 % (0-6); % Immature Granulocytes 0.3 % (0-0.5); % Lymphocytes 30.6 % (20.5-51.1); % Monocytes 8.8 % (1.7-9.3); % Neutrophils 56.6 % (42.2-75.2); Absolute Basophils 0.1 10^3/uL (0-0.2); Absolute Eosinophils 0.2 10^3/uL (0-0.7); Absolute Lymphocytes 1.8 10^3/uL (1.2-3.4); Absolute Monocytes 0.5 10^3/uL (0.1-0.6); Absolute Neutrophils 3.4 10^3/uL (1.4-6.5); Hematocrit 43.8 % (37.0-47.0); Hemoglobin 14.8 g/dL (12.0-16.0); Mean Corp Hgb Conc. 33.8 g/dL (33.0-37.0); Mean Corpuscular Hgb 32.2 pg (27.0-31.0); Mean Corpuscular Volume 95.2 fL (81.0-99.0); Mean Platelet Volume 10.9 fL (7.4-10.4); Nucleated Red Blood Cells % 0 %; Platelet Count 239 10^3/uL (130-400); Red Cell Dist. Width 13.2 % (11.5-14.5); Urine Albumin Negative (Neg - Trace); Urine Bilirubin Negative (Negative); Urine Character Clear (Clear); Urine Color Yellow; Urine Glucose Negative (Negative); Urine Ketone Negative (Negative); Urine Leukocyte Negative (Negative); Urine Nitrite Negative (Negative); Urine Occult Blood Negative (Negative); Urine Urobilinogen Negative (Neg - 1+)
[2024-09-16 17:27] LABS: Erythrocyte Sed Rate 31 mm/hour (0-20)
[2024-09-16 17:34] LABS: ALT (SGPT) 15 U/L (0-35); AST (SGOT) 22 U/L (14-36); Albumin 4.3 g/dl (3.5-5.0); Alkaline Phosphatase 71 U/L (38-126); Blood Urea Nitrogen 12 mg/dl (7-17); Calcium 9.4 mg/dl (8.4-10.2); Carbon Dioxide 29 mmol/L (22-30); Chloride 99 mmol/L (98-107); Glucose 85 mg/dl (70-99); Sodium 137 mmol/L (135-145); Total Bilirubin 0.8 mg/dl (0.2-1.3); Total Protein 7.4 g/dl (6.3-8.2); eGFR > 60.00
[2024-09-16 17:57] LABS: Vitamin D, 25-OH*** 41.6 ng/mL (30-80)
[2024-09-19 00:48] LABS: ANA, IgG Reflex to HEp-2 Detected (None Detected)
== END ==
LOC: REG 15:51
PROVIDERS: ATTENDING PHYSICIAN Internal Medicine Rheumatology; FAMILY PHYSICIAN Family Medicine
DX: E55.9 Vitamin D deficiency, unspecified (principal); I73.00 Raynaud's syndrome without gangrene; M32.10 Systemic lupus erythematosus, organ or system involvement unspecified
CPT/HCPCS: 36415; 80053; 81003; 82306; 85025; 85652; 86038; 86140; 87086

== ENCOUNTER → 2024-10-07 14:30 | Outpatient (REF) | payer BC, SELFPAY | LOC: RAD 14:30 | PROVIDERS: ATTENDING PHYSICIAN Nurse Practitioner Family; FAMILY PHYSICIAN Family Medicine | DX: J18.9 Pneumonia, unspecified organism (principal) | CPT/HCPCS: 71046 ==

== ENCOUNTER 2024-10-20 08:18 | Outpatient (RCR) | payer BC, SELFPAY ==
[2024-10-20] MEDS: SAPHNELO 100 MG IV (09:01)
[2024-10-20 09:05] VITALS: BP 107/68
== END 2024-10-26 09:52 | disposition home or self-care (01) ==
LOC: OID 08:18
PROVIDERS: ATTENDING PHYSICIAN Internal Medicine Rheumatology; FAMILY PHYSICIAN Family Medicine
DX: M32.9 Systemic lupus erythematosus, unspecified (principal)
CPT/HCPCS: 96365; J0491

== ENCOUNTER 2024-11-17 07:37 | Outpatient (RCR) | payer BC, SELFPAY ==
[2024-11-17 08:04] VITALS: BP 97/64
[2024-11-17] MEDS: SAPHNELO 100 MG IV (08:12)
== END 2024-11-18 13:09 | disposition home or self-care (01) ==
LOC: OID 07:37
PROVIDERS: ATTENDING PHYSICIAN Internal Medicine Rheumatology; FAMILY PHYSICIAN Family Medicine
DX: M32.9 Systemic lupus erythematosus, unspecified (principal)
CPT/HCPCS: 96365; J0491

== ENCOUNTER → 2024-12-06 15:31 | Outpatient (REF) | payer BC, SELFPAY ==
[2024-12-06 15:44] LABS: % Basophils 0.8 % (0-2); % Eosinophils 2.5 % (0-6); % Immature Granulocytes 0.1 % (0-0.5); % Lymphocytes 16.6 % (20.5-51.1); % Monocytes 11.9 % (1.7-9.3); % Neutrophils 68.1 % (42.2-75.2); Absolute Basophils 0.1 10^3/uL (0-0.2); Absolute Eosinophils 0.2 10^3/uL (0-0.7); Absolute Lymphocytes 1.3 10^3/uL (1.2-3.4); Absolute Monocytes 0.9 10^3/uL (0.1-0.6); Absolute Neutrophils 5.2 10^3/uL (1.4-6.5); Hematocrit 43.5 % (37.0-47.0); Hemoglobin 14.1 g/dL (12.0-16.0); Mean Corp Hgb Conc. 32.4 g/dL (33.0-37.0); Mean Corpuscular Hgb 32.1 pg (27.0-31.0); Mean Corpuscular Volume 99.1 fL (81.0-99.0); Mean Platelet Volume 12.5 fL (7.4-10.4); Nucleated Red Blood Cells % 0 %; Platelet Count 277 10^3/uL (130-400); Red Blood Cell Count 4.39 10^6/uL (4.20-5.40); Red Cell Dist. Width 13.4 % (11.5-14.5); White Blood Cell Count 7.6 10^3/uL (4.8-10.8)
[2024-12-06 15:52] LABS: ALT (SGPT) 10 U/L (0-35); AST (SGOT) 21 U/L (14-36); Albumin 3.7 g/dl (3.5-5.0); Alkaline Phosphatase 84 U/L (38-126); Blood Urea Nitrogen 9 mg/dl (7-17); Calcium 9.2 mg/dl (8.4-10.2); Carbon Dioxide 28 mmol/L (22-30); Chloride 107 mmol/L (98-107); Glucose 87 mg/dl (70-99); Potassium 4.4 mmol/L (3.5-5.1); Sodium 142 mmol/L (135-145); Total Bilirubin 0.8 mg/dl (0.2-1.3); Total Protein 7.2 g/dl (6.3-8.2); eGFR > 60.00
[2024-12-06 16:03] LABS: Erythrocyte Sed Rate 81 mm/hour (0-20)
== END ==
LOC: CLAB 15:31
PROVIDERS: ATTENDING PHYSICIAN Family Medicine
DX: M32.9 Systemic lupus erythematosus, unspecified (principal); D84.9 Immunodeficiency, unspecified; R14.0 Abdominal distension (gaseous); R10.84 Generalized abdominal pain
CPT/HCPCS: 36415; 80053; 85025; 85652; 86140

== ENCOUNTER → 2024-12-07 09:24 | Outpatient (REF) | payer BC, SELFPAY | LOC: REG 09:24 | PROVIDERS: ATTENDING PHYSICIAN Family Medicine; FAMILY PHYSICIAN Family Medicine | DX: R19.7 Diarrhea, unspecified (principal) | CPT/HCPCS: 83993; 87045; 87046; 87324; 87328; 87329; 87427; 87449 ==

== ENCOUNTER → 2024-12-09 15:13 | Outpatient (REF) | payer BC, SELFPAY | LOC: RAD 15:13 | PROVIDERS: ATTENDING PHYSICIAN Family Medicine | DX: R14.0 Abdominal distension (gaseous) (principal); R10.84 Generalized abdominal pain; R19.7 Diarrhea, unspecified; R09.89 Other specified symptoms and signs involving the circulatory and respiratory systems | CPT/HCPCS: 71250; 74177; Q9967 ==

== ENCOUNTER 2024-12-15 08:33 | Outpatient (RCR) | payer BC, SELFPAY ==
[2024-12-15] MEDS: SAPHNELO 100 MG IV (09:10)
[2024-12-15 09:11] VITALS: BP 105/68
== END 2024-12-16 08:41 | disposition home or self-care (01) ==
LOC: OID 08:33
PROVIDERS: ATTENDING PHYSICIAN Internal Medicine Rheumatology; FAMILY PHYSICIAN Family Medicine
DX: M32.10 Systemic lupus erythematosus, organ or system involvement unspecified (principal)
CPT/HCPCS: 96365; J0491

== ENCOUNTER 2025-01-12 07:37 | Outpatient (RCR) | payer BC, SELFPAY ==
[2025-01-12 07:50] VITALS: BP 114/75
[2025-01-12] MEDS: SAPHNELO 100 MG IV (08:14)
== END 2025-01-13 08:23 | disposition home or self-care (01) ==
LOC: OID 07:37
PROVIDERS: ATTENDING PHYSICIAN Internal Medicine Rheumatology; FAMILY PHYSICIAN Family Medicine
DX: M32.9 Systemic lupus erythematosus, unspecified (principal); M32.10 Systemic lupus erythematosus, organ or system involvement unspecified
CPT/HCPCS: 96365; J0491

== ENCOUNTER → 2025-01-20 10:45 | Outpatient (REF) | payer BC, SELFPAY | LOC: HWRAD 10:45 | PROVIDERS: ATTENDING PHYSICIAN Internal Medicine Gastroenterology; FAMILY PHYSICIAN Family Medicine | DX: R14.0 Abdominal distension (gaseous) (principal); R19.4 Change in bowel habit | CPT/HCPCS: 74018; 76700 ==

== ENCOUNTER → 2025-02-01 10:05 | Outpatient (REF) | payer BC, SELFPAY ==
[2025-02-01 13:10] LABS: Folate 9.6 ng/ml (2.76-20); Vitamin B12 370 pg/ml (239-931)
[2025-02-02 13:53] LABS: tTG IgA Antibody 3.7 EU/ml (0-19); tTG IgG Antibody 8.5 EU/ml (0-19)
== END ==
LOC: LAB 10:05
PROVIDERS: ATTENDING PHYSICIAN Internal Medicine Gastroenterology; FAMILY PHYSICIAN Family Medicine
DX: R10.9 Unspecified abdominal pain (principal); R14.0 Abdominal distension (gaseous)
CPT/HCPCS: 36415; 82607; 82746; 82784; 83013; 83516; 86231

== ENCOUNTER → 2025-02-02 09:38 | Outpatient (REF) | payer BC, SELFPAY ==
[2025-02-04 23:44] LABS: H. pylori Antigen, Fecal Negative (Negative)
== END ==
LOC: REG 09:38
PROVIDERS: ATTENDING PHYSICIAN Internal Medicine Gastroenterology; FAMILY PHYSICIAN Family Medicine
DX: R10.9 Unspecified abdominal pain (principal)
CPT/HCPCS: 87338

== ENCOUNTER 2025-02-09 07:40 | Outpatient (RCR) | payer BC, SELFPAY ==
[2025-02-09 07:45] VITALS: BP 105/72
[2025-02-09] MEDS: SAPHNELO 100 MG IV (07:59)
== END 2025-02-10 10:12 | disposition home or self-care (01) ==
LOC: OID 07:40
PROVIDERS: ATTENDING PHYSICIAN Internal Medicine Rheumatology; FAMILY PHYSICIAN Family Medicine
DX: M32.10 Systemic lupus erythematosus, organ or system involvement unspecified (principal)
CPT/HCPCS: 96365; J0491

== ENCOUNTER 2025-03-09 07:40 | Outpatient (RCR) | payer BC, SELFPAY ==
[2025-03-09] MEDS: SAPHNELO 100 MG IV (08:21)
[2025-03-09 08:29] VITALS: BP 112/58
== END 2025-03-10 08:39 | disposition home or self-care (01) ==
LOC: OID 07:40
PROVIDERS: ATTENDING PHYSICIAN Internal Medicine Rheumatology; FAMILY PHYSICIAN Family Medicine
DX: M32.9 Systemic lupus erythematosus, unspecified (principal)
CPT/HCPCS: 96365; J0491

== ENCOUNTER → 2025-03-09 10:31 | Outpatient (REF) | payer BC, SELFPAY ==
[2025-03-09 11:39] LABS: Urine Character Clear (Clear)
[2025-03-09 11:43] LABS: Hematocrit 46.1 % (37.0-47.0); Hemoglobin 15.0 g/dL (12.0-16.0); Mean Corp Hgb Conc. 32.5 g/dL (33.0-37.0); Mean Corpuscular Volume 95.6 fL (81.0-99.0); Nucleated Red Blood Cells % 0 %; Platelet Count 208 10^3/uL (130-400); Red Cell Dist. Width 13.2 % (11.5-14.5)
[2025-03-09 12:01] LABS: ALT (SGPT) 15 U/L (0-35); AST (SGOT) 24 U/L (14-36); Albumin 3.9 g/dl (3.5-5.0); Alkaline Phosphatase 62 U/L (38-126); Blood Urea Nitrogen 7 mg/dl (7-17); Calcium 9.6 mg/dl (8.4-10.2); Carbon Dioxide 29 mmol/L (22-30); Chloride 106 mmol/L (98-107); Glucose 92 mg/dl (70-99); Potassium 4.5 mmol/L (3.5-5.1); Sodium 139 mmol/L (135-145); Total Protein 7.1 g/dl (6.3-8.2); eGFR > 60.00
[2025-03-09 12:05] LABS: C-Reactive Protein 6.00 mg/L (0.0-10.00)
== END ==
LOC: WDC 10:31
PROVIDERS: ATTENDING PHYSICIAN Obstetrics & Gynecology; FAMILY PHYSICIAN Family Medicine; REFERRING PHYSICIAN Internal Medicine Rheumatology
DX: G43.109 Migraine with aura, not intractable, without status migrainosus (principal); M32.10 Systemic lupus erythematosus, organ or system involvement unspecified; Z12.31 Encounter for screening mammogram for malignant neoplasm of breast
CPT/HCPCS: 36415; 77063; 77067; 80053; 81003; 85025; 85652; 86038; 86140; 86160; 86235

== ENCOUNTER 2025-04-06 07:38 | Outpatient (RCR) | payer BC, SELFPAY ==
[2025-04-06] MEDS: SAPHNELO 100 MG IV (08:15)
[2025-04-06 08:30] VITALS: BP 118/65
[2025-04-06 08:54] VITALS: BP 108/68
== END 2025-04-07 08:59 | disposition home or self-care (01) ==
LOC: OID 07:38
PROVIDERS: ATTENDING PHYSICIAN Internal Medicine Rheumatology; FAMILY PHYSICIAN Family Medicine
DX: M32.9 Systemic lupus erythematosus, unspecified (principal)
CPT/HCPCS: 96365; J0491

== ENCOUNTER 2025-04-07 06:25 | Day surgery (SDC) | payer BC, SELFPAY | END 2025-04-07 14:37 | disposition home or self-care (01) | LOC: GI 06:25 | PROVIDERS: ATTENDING PHYSICIAN Internal Medicine Gastroenterology | DX: Z12.11 Encounter for screening for malignant neoplasm of colon (principal); K64.4 Residual hemorrhoidal skin tags; K57.30 Diverticulosis of large intestine without perforation or abscess without bleeding; R14.0 Abdominal distension (gaseous); K31.89 Other diseases of stomach and duodenum; K22.89 Other specified disease of esophagus; K21.9 Gastro-esophageal reflux disease without esophagitis; D12.0 Benign neoplasm of cecum; D12.2 Benign neoplasm of ascending colon; D12.5 Benign neoplasm of sigmoid colon; K63.5 Polyp of colon; K62.1 Rectal polyp; D12.8 Benign neoplasm of rectum; Z86.0100 Personal history of colon polyps, unspecified | CPT/HCPCS: 45385; 45380; 43239; 88305; 88342 ==

== ENCOUNTER 2025-05-04 07:40 | Outpatient (RCR) | payer BC, SELFPAY ==
[2025-05-04] MEDS: SAPHNELO 100 MG IV (08:20)
[2025-05-04 08:28] VITALS: BP 106/64
== END 2025-05-05 10:25 | disposition home or self-care (01) ==
LOC: OID 07:40
PROVIDERS: ATTENDING PHYSICIAN Internal Medicine Rheumatology; FAMILY PHYSICIAN Family Medicine
DX: M32.10 Systemic lupus erythematosus, organ or system involvement unspecified (principal)
CPT/HCPCS: 96365; J0491

== ENCOUNTER 2025-06-29 07:35 | Outpatient (RCR) | payer BC, SELFPAY ==
[2025-06-01 08:40] VITALS: BP 121/59
[2025-06-01] MEDS: SAPHNELO 100 MG IV (08:52)
[2025-06-29] MEDS: SAPHNELO 100 MG IV (08:09)
[2025-06-29 08:14] VITALS: BP 100/63
== END 2025-06-29 23:59 | disposition home or self-care (01) ==
LOC: OID 07:35
PROVIDERS: ATTENDING PHYSICIAN Internal Medicine Rheumatology; FAMILY PHYSICIAN Family Medicine
DX: M32.10 Systemic lupus erythematosus, organ or system involvement unspecified (principal)
CPT/HCPCS: 96365; J0491